=== PATIENT | male | born 1995 | race Caucasian/White ===

== ENCOUNTER 2018-08-05 08:40 | Emergency (ER) | payer SELFPAY ==
[~2018-08-05] VITALS: Wt 89.4 kg
[2018-08-05] MEDS ORDERED: SOD CHLORIDE 0.9% 1,000 ML IV STA (09:15)
[2018-08-05] MEDS ORDERED: FAMOTIDINE 20 MG INJ IV STA (09:15)
[2018-08-05] MEDS ORDERED: ONDANSETRON 4 MG INJ IV STA (09:15)
[2018-08-05] MEDS ORDERED: LIDOCAINE/MYLANTA 40 ML BTL PO STA (09:15)
--- NOTE | 2018-08-05 09:28 | ERD ---
ER Documentation Chief Complaint Chief Complaint BODY ACHE, FEVER, FLU SYMPTOMS X 2 DAYS HPI This is a 23-year-old male with a nonsignificant past medical history presents ED with complaints of diffuse crampy abdominal pain for the past 2 days. Patient states that he believes he is food poisoning. Patient admits to having nausea with 2 episodes of nonbilious nonbloody vomiting today. Patient states that the crampy abdominal pain is constant and he rates it as a 9 out of 10. Denies any aggravating or alleviating factors. Denies chest pain, shortness of breath, fever, chills, body aches, cough, congestion, hemoptysis, hematemesis, diarrhea, constipation, melena, hematochezia, dysuria, hematuria and all other symptoms. History of appendectomy. Admits to smoking tobacco occasionally states 1 cigarette every 4 months. Occasional alcohol use socially. ROS All systems reviewed and are negative except as per history of present illness. Allergies Allergies: Coded Allergies: No Known Allergy (Unverified , 08/05/18) PMhx/Soc History of Surgery: Yes (appendectomy) Anesthesia Reaction: No Hx Neurological Disorder: No Hx Respiratory Disorders: No Hx Cardiac Disorders: No Hx Psychiatric Problems: No Hx Miscellaneous Medical Probl: No Hx Alcohol Use: Yes Hx Substance Use: Yes (marijuana) Hx Tobacco Use: Yes Smoking Status: Current some day smoker Physical Exam Vitals Vital Signs Date Temp Pulse Resp B/P (MAP) Pulse Ox O2 O2 Flow FiO2 Time Delivery Rate 08/05/18 98.7 78 18 143/81 99 08:42 (101) Physical Exam Physical Exam Vitals signs: Reviewed by me. General: Well developed, well nourished, in mild distress. Patient is awake and alert. Head: Normocephalic, atraumatic. Eyes: Normal conjunctiva, Pupils PERRLA, EOM intact grossly ENT: Pharynx is clear, Moist mucous membranes, external ears, nose and mouth normal Neck: Supple, no masses, lymphadenopathy or JVD Respiratory: Clear to auscultation bilaterally with no wheezing, rhonchi, rales, no distress Cardiovascular: RRR, no murmurs, rubs, or gallops Abdominal: Soft, nondistended, no peritoneal signs, no rigidity, no surgical abdomen, bowel sounds present all 4 quadrants, nontender light deep palpation all 4 quadrants, [place] sign negative Neurologic: Alert and oriented, moving all extremities, normal speech, no focal weakness, no cerebellar signs. Normal mentation Skin: warm and dry, No rash Psych: Normal mood Result Diagram: 08/05/1893208/05/1833 Results 24 hrs Laboratory Tests Test 08/05/18 09:33 White Blood Count 7.6 10^3/ul Red Blood Count 4.95 10^6/ul Hemoglobin 14.8 g/dl Hematocrit 44.8 % Mean Corpuscular Volume 90.5 fl Mean Corpuscular Hemoglobin 29.9 pg Mean Corpuscular Hemoglobin Concent 33.0 g/dl Red Cell Distribution Width 11.9 % Platelet Count 132 10^3/UL Mean Platelet Volume 10.9 fl Immature Granulocytes % 0.400 % Neutrophils % 73.2 % Lymphocytes % 19.7 % Monocytes % 5.1 % Eosinophils % 0.9 % Basophils % 0.7 % Nucleated Red Blood Cells % 0.0 /100WBC Immature Granulocytes # 0.030 10^3/ul Neutrophils # 5.6 10^3/ul Lymphocytes # 1.5 10^3/ul Monocytes # 0.4 10^3/ul Eosinophils # 0.1 10^3/ul Basophils # 0.1 10^3/ul Nucleated Red Blood Cells # 0.0 10^3/ul Urine Color YELLOW Urine Clarity SLIGHTLY CLOUDY Urine pH 5.0 Urine Specific [place] 1.026 Urine Ketones TRACE mg/dL Urine Nitrite NEGATIVE mg/dL Urine Bilirubin NEGATIVE mg/dL Urine Urobilinogen NEGATIVE mg/dL Urine Leukocyte Esterase NEGATIVE Luis/ul Urine Microscopic RBC 0 /HPF Urine Microscopic WBC 0 /HPF Urine Mucus MODERATE /HPF Urine Hemoglobin NEGATIVE mg/dL Urine Glucose NEGATIVE mg/dL Urine Total Protein NEGATIVE mg/dl Sodium Level 139 mmol/L Potassium Level 4.3 mmol/L Chloride Level 101 mmol/L Carbon Dioxide Level 31 mmol/L Anion Gap 7 Blood Urea Nitrogen 15 mg/dl Creatinine 0.70 mg/dl Est Glomerular Filtrat Rate mL/min > 60 mL/min Glucose Level 139 mg/dl Calcium Level 9.7 mg/dl Total Bilirubin 0.5 mg/dl Direct Bilirubin 0.00 mg/dl Indirect Bilirubin 0.5 mg/dl Aspartate Amino Transf (AST/SGOT) 29 IU/L Alanine Aminotransferase (ALT/SGPT) 32 IU/L Alkaline Phosphatase 60 IU/L Total Protein 7.7 g/dl Albumin 4.5 g/dl Globulin 3.20 g/dl Albumin/Globulin Ratio 1.40 Lipase 32 U/L Current Medications Medications Dose Sig/Emir Start Time Status Last (Trade) Ordered Route PRN Stop Time Admin Dose Reason Admin Sodium 1,000 ml @ Q1H STAT 08/05/18 DC 08/05/18 Chloride 1,000 mls/hr IV 09:15 09:33 08/05/18 10:14 Ondansetron 4 mg ONCE STAT 08/05/18 DC 08/05/18 HCl (Zofran IV 09:15 09:33 Inj) 08/05/18 09:18 Famotidine 20 mg ONCE STAT 08/05/18 DC 08/05/18 (Pepcid Iv) IV 09:15 09:33 08/05/18 09:18 40 ml ONCE STAT 08/05/18 DC 08/05/18 Miscellaneous PO 09:15 09:33 Medication 08/05/18 09:18 (Gi Cocktail (2)) Morphine 6 mg ONCE STAT 08/05/18 DC Sulfate IV 09:56 (morphine) 08/05/18 10:17 Morphine 4 mg ONCE STAT 08/05/18 DC 08/05/18 Sulfate IV 10:01 10:34 (morphine) 08/05/18 10:17 Procedures/MDM EKG, MONITORS, & DIAGNOSTIC IMAGING: [place] [address] Radiology Main Line: [phone] DIAGNOSTIC IMAGING REPORT Patient: JACKIE ELLER : 1995 Age: 23 Sex: M MR #: [id number] DOS: 08/05/18 0956 Ordering MD: FRAN SUÁREZ PA-C Location: [facility] Room/Bed: PROCEDURE: CT Abdomen and Pelvis without contrast. CLINICAL INDICATION: Abdominal pain TECHNIQUE: CT of the abdomen and pelvis without IV contrast. Coronal and sagittal reformatted images. DICOM images are available. One or more of the following dose reduction techniques were used: automated exposure control, adjustment of the mA and/or kV according to patient size, use of iterative reconstruction technique. CTDI 13.2 mGy, DLP 790 mGy-cm. COMPARISON: None. FINDINGS: Lower thorax: Normal Liver: Normal Biliary: Normal gallbladder. No biliary dilatation. Pancreas: Normal Spleen: Normal Adrenal glands: Normal Genitourinary: No hydronephrosis or urinary calculi. Unremarkable urinary bladder. Vascular: No abdominal aortic aneurysm. Lymph nodes: No lymphadenopathy. Gastrointestinal: No bowel obstruction. No evidence of appendicitis. No diverticulosis, diverticulitis or colitis. Peritoneum: No free air, free fluid or abscess. Reproductive organs: Normal Musculoskeletal: Unremarkable. IMPRESSION: 1. Unremarkable CT of the abdomen and pelvis. 2. No mass, lymphadenopathy, or focal acute inflammatory process is identified. RPTAT: AAQQ .Georges Keane MD, MD Date Time Electronically viewed and signed by .Georges Keane MD, MD on 08/05/2018 10:32 .R/ CC: FRAN SUÁREZ PA-C [id number] LAB INTERPRETATION: CBC shows no evidence of hemorrhage or infection, mildly decreased platelet count of 132 Chemistry shows no evidence of significant electrolyte abnormalities or renal insufficiency Liver function test shows no evidence of acute biliary or hepatic dysfunction Lipase shows no evidence of acute pancreatitis ua unremarkable ER COURSE: The patient was given Zofran, IV normal saline, GI cocktail, and morphine The medication was well tolerated and the patient reports improvement in symptoms. The patient was stable throughout ED course. I kept the patient and/or family informed of laboratory and diagnostic imaging results throughout the emergency room course. The patient was promptly evaluated and a treatment plan was devised based on H&P and other data. This plan was discussed with the patient who agreed and had no further questions or concerns prior to discharge. MEDICAL DECISION MAKING: This is a 23-year-old male who presents ED with crampy abdominal pain with associated nausea and vomiting times 2 days. Male patient presenting with abdominal pain. Considered causes of abdominal pain that are not gender-specific (e.g., appendicitis, volvulus, small bowel obstruction, mesenteric adenitis, acute cholecystitis/choledocholithiasis, AAA and other biliary pathology, etc.) as well as male-specific causes (testicular torsion, epididymitis, orchitis, etc.). Patient well-appearing with normal vital signs. Abdomen benign on multiple repeat exams. Laboratory testing and imaging here reviewed and normal. This likely could be a gastritis or gastroenteritis. Patient given strict return precautions for worsening pain, inability to eat/drink, fevers (temperature over 100.4F), or other concerns. Patient instructed to follow up with his primary doctor and is agreeable; all questions were answered. Repeat abdominal exam in 12 hours. Pt agrees w tx plan and understands strict return pr ecautions. DISPOSITION PLAN: We discussed follow up with the patient's primary care doctor within 24 to 48 hours. Patient counseled regarding my diagnostic impression and care plan. Prior to discharge all questions answered. Pt agrees with treatment plan and understands strict return precautions. Precautionary instructions provided including instructions to return to the ER if not improving or for any worsening or changing symptoms or concerns. SPECIALIST FOLLOW UP RECOMMENDED: None Patient has been advised to follow up with primary care in 1-2 days. Disclaimer: Inadvertent spelling and grammatical errors are likely due to EHR/dictation software use and do not reflect on the overall quality of patient care. Also, please note that the electronic time recorded on this note does not necessarily reflect the actual time of the patient encounter. Blood Pressure Assessment: Patient's blood pressure was elevated (>120/80) but appears stable without evidence of hypertension emergency or urgency. The patient was counseled about the risks of hypertension and urged to pursue outpatient monitoring and therapy within a week with their primary care physician. Departure Diagnosis: Primary Impression: Abdominal pain Abdominal location: generalized Qualified Codes: R10.84 - Generalized abdominal pain Condition: Stable Patient Instructions: Abdominal Pain, Food Poisoning Or Gastroenteritis (6Y- Adult), Nausea and Vomiting-Adult Referrals: COMM[facility] Additional Instructions: Patient advised to return to the ED immediately for new or worsening symptoms. Patient advised to follow up with primary care provider in the next 24-48 hours. Patient verbalized understanding and agrees with treatment plan and course of action. If patient has no primary care they may follow up with one of the community clinics listed on the following page or one of the options listed below [facility] [address] [place] [id number] or [facility] [id number] [place] [id number] or [facility] [address] [place] [address] FRAN SUÁREZ PA-C Aug 05, 2018 09:28
[2018-08-05] MEDS ORDERED: morphine 4 MG/ML VIAL IV STA ×2 (09:56→10:01)
[2018-08-05] MEDS ORDERED: ONDA4TAB14 PO (10:49)
[2018-08-05] MEDS ORDERED: DICY10CA40 PO (10:49)
[2018-08-05] MEDS ORDERED: HYDR-4011 PO (10:49)
[2018-08-05 11:20] VITALS: BP 133/80; PULSE 70; RESP 16
== END 2018-08-05 11:22 | disposition home or self-care (01) ==
LOC: FTE 08:40
DX: R10.84 Generalized abdominal pain (principal); F17.210 Nicotine dependence, cigarettes, uncomplicated
CPT/HCPCS: 74176; 80053; 81001; 83690; 85025; J2270; J2405; J7030; 36415; 81003; 96361; 96374; 96375